=== PATIENT | female | born 1975 | race Asian ===

== ENCOUNTER 2021-02-22 14:02 | Emergency (ER) | payer OTHER ==
[~2021-02-22] VITALS: Ht 167.6 cm; Wt 63.5 kg
[2021-02-22 14:05] VITALS: BP 121/69
[2021-02-22] MEDS ORDERED: TETANUS-DIPTH-ACEL PERTUSSIS 0.5ML SYR Tdap IM ONE (14:45)
== END 2021-02-22 14:52 | disposition home or self-care (01) ==
LOC: ER 14:02
DX: S61.250A Open bite of right index finger without damage to nail, initial encounter (principal); W55.01XA Bitten by cat, initial encounter; Y93.89 Activity, other specified; Y92.89 Other specified places as the place of occurrence of the external cause; Y99.8 Other external cause status
CPT/HCPCS: 90471; 90715